=== PATIENT | female | born 1940 | race Caucasian/White ===

== ENCOUNTER → 2016-06-30 | Outpatient (CLI) | payer MEDICARE, OTHER | LOC: GMAM 17:12 | PROVIDERS: ATTEND Family Medicine | DX: E55.9 Vitamin D deficiency, unspecified (principal) ==

== ENCOUNTER → 2016-07-07 | Outpatient (CLI) | payer MEDICARE, OTHER | END | disposition home or self-care (01) | LOC: GMA 17:39 | PROVIDERS: ATTEND Nurse Practitioner Acute Care | DX: N39.0 Urinary tract infection, site not specified (principal) ==

== ENCOUNTER → 2016-12-14 | Outpatient (CLI) | payer MEDICARE, OTHER | END | disposition home or self-care (01) | LOC: GMAM 10:42 | PROVIDERS: ATTEND Family Medicine | DX: E55.9 Vitamin D deficiency, unspecified (principal) ==

== ENCOUNTER → 2016-12-22 | Outpatient (CLI) | payer MEDICARE, OTHER | LOC: GMAM 17:42 | PROVIDERS: ATTEND Family Medicine | DX: N39.0 Urinary tract infection, site not specified (principal) ==

== ENCOUNTER → 2017-02-20 | Outpatient (CLI) | payer MEDICARE, OTHER ==
--- NOTE | 2017-02-21 07:49 | US ---
EXAM DESCRIPTION: Thyroid CLINICAL HISTORY: 76 years Female, THYROID NODULE COMPARISON: None. TECHNIQUE: Real-time sonographic images of the thyroid are obtained. FINDINGS: Right lobe thyroid measures 3.5 x 1.2 x 1.6 cm. There are 2 well-circumscribed hypoechoic solid nodules measuring less than 6 mm greatest diameter in the mid to upper pole of the right lobe thyroid with no suspicious calcifications or increased vascularity. The isthmus measures 2 mm in thickness. Left lobe thyroid measures 3.5 x 1.5 x 1.5 cm. There is a heterogeneous hypoechoic nodule with increased through transmission in the midpole of the left lobe measuring 2.6 x 1.4 x 1.4 cm. No abnormal calcifications or increased vascularity is seen. IMPRESSION: There is a 2.6 cm nodule of the mid pole left lobe thyroid. Recommend fine-needle aspiration of this nodule based on size of the lesion. Electronically signed by: Raul Miles MD 02/21/2017 7:48 AM CDT
--- NOTE | 2017-02-21 13:03 | US ---
EXAM DESCRIPTION: Extremity,Lower Cortes Arteries CLINICAL HISTORY: 76 years Female, Peripheral vascular disease, unspecified COMPARISON: None. TECHNIQUE: 2-D grayscale and color arterial duplex Doppler evaluation of the bilateral lower extremities are obtained FINDINGS: Mild scattered calcified plaque throughout the arterial vasculature are seen. There is triphasic to biphasic waveform flow from proximal to distal in the right lower extremity with no elevated velocities. There is triphasic to biphasic waveform flow from the common femoral artery to the popliteal artery on the left with biphasic flow in the peroneal artery. Monophasic flow is seen in the left posterior tibialis and dorsalis pedis arteries with decreased velocity in the dorsalis pedis. IMPRESSION: Mild atherosclerotic disease is seen. No ultrasound evidence of large vessel high-grade stenosis or occlusion. There is likely moderate scattered disease of the left posterior tibialis and anterior tibialis and dorsalis pedis arteries. Electronically signed by: Raul Miles MD 02/21/2017 1:02 PM CDT
== END ==
LOC: US 10:52
PROVIDERS: ATTEND Family Medicine
DX: E04.1 Nontoxic single thyroid nodule (principal); I70.203 Unspecified atherosclerosis of native arteries of extremities, bilateral legs; I73.9 Peripheral vascular disease, unspecified

== ENCOUNTER → 2017-08-07 | Outpatient (CLI) | payer MEDICARE, OTHER ==
--- NOTE | 2017-08-07 15:04 | MRI ---
MRI OF LUMBAR SPINE WITHOUT INTRAVENOUS CONTRAST HISTORY:LOW BACK PAIN COMPARISON: MRI of lumbar spine from September 20, 2013 TECHNIQUE: Routine MRI protocol for lumbar spine without intravenous contrast administration. FINDINGS: Interval appearance of laminectomy defects in L4 and L5. No concerning fluid collection along the laminectomy defects. Stably accentuated lumbar lordosis secondary to anterolisthesis of L4 on L5 with posterior endplate offset of 5 mm.. Vertebral heights are maintained without interval compression injury. No focal spondylolysis nor new spondylolisthesis. Marrow signal characteristics remain heterogeneous without focal injury, inflammation or marrow infiltration. Subtly increased edema along several endplates are more consistent with underlying degenerative changes Conus terminates at inferior T12 level. Cauda equina nerve roots are unremarkable in appearance without abnormal tethering. No paraspinal soft tissue abnormality is identified in the lumbar region. At T12-L1, disc height is maintained. Central canal and neuroforamen bilaterally are patent. At L1-2, disc height is reduced by approximately 50%. Annular disc bulge continues to broadly but minimally efface the ventral thecal margin. Stable minimal central canal stenosis. Extension of extruded discs toward lateral recesses contribute to moderate bilateral neuroforaminal stenosis slightly increased since prior study. At L2-3, disc height is now decreased by over 80%, slightly increased since prior study. Annular disc bulge continues to be associated with posterior disc extrusion which probably but mildly deform the ventral thecal margin. This combined with facet arthropathy provide stable mild central canal stenosis. Extension of extruded disc toward both lateral recesses provides minimal right and moderate left neuroforaminal stenosis, stable since prior study At L3-4, disc height remains stably reduced by 60%. Annular disc bulges associated with posterior disc extrusion which probably and stably flatten the ventral thecal margin. Facet arthropathy at this level continues to contribute to mild to moderate central canal stenosis. Extension of extruded discs toward the lateral recesses provides moderate bilateral neuroforaminal stenosis, stable since prior study. At L4-5, disc height remains reduced by approximately 90%. Posterior disc extrusion and endplate offset flatten the ventral thecal margin. Central canal patency however dramatically improved due to interval laminectomy. Combination of extruded disc extending toward the lateral recesses and facet arthropathy provides severe right and moderate left neuroforaminal stenosis, unchanged since prior study At L5-S1, disc height is reduced by approximately 80%. Posterior disc extrusion broadly flattening the ventral thecal margin, while central canal patency is minimally improved despite decompressive laminectomy. Lateral extension of extruded disc contribute to severe right and moderate left neural foraminal stenosis (one combine with facet arthropathy), stable since prior study. IMPRESSION: 1. Interval decompressive laminectomy and L4 and L5 levels since prior study, with significantly improved central canal patency at L4-5 level, and only minimally improved patency of central canal at L5-S1 level. 2. Grossly stable extent of multilevel degenerative changes and posterior disc extrusions throughout lumbar spine 3. No acute bony injury identified in lumbar region 4. Varying degrees of neural foraminal stenosis in multiple levels bilaterally, generally stable in extent since prior study. Electronically signed by: Fredi Newsome MD 08/07/2017 3:03 PM [facility]
== END ==
LOC: MRI 14:42
PROVIDERS: ATTEND Family Medicine
DX: M54.5 Low back pain (principal); E55.9 Vitamin D deficiency, unspecified

== ENCOUNTER → 2018-08-30 | Outpatient (CLI) | payer MEDICARE, OTHER | LOC: GMAM 12:28 | PROVIDERS: ATTEND Family Medicine | DX: E55.9 Vitamin D deficiency, unspecified (principal) ==

== ENCOUNTER → 2018-09-06 | Outpatient (CLI) | payer MEDICARE, OTHER ==
--- NOTE | 2018-09-07 09:20 | MRI ---
EXAM DESCRIPTION: Brain w/oContrast CLINICAL HISTORY: MEMORY LOSS COMPARISON: Previous CT head June 28, 2012 TECHNIQUE: Non contrast MRI of the brain is performed according to our usual protocol including multiplanar multi sequence technique. FINDINGS: Sagittal T1 images show intact corpus callosum. Normal pituitary gland with normal T1 appearance of the сергей and medulla and upper cervical cord. Normal signal intensity within the clivus and calvarium. Axial T2 fat sat images reveal preservation of intracranial vascular flow voids. Normal yoon matter T2 signal intensity. Prominent ventricles with prominent temporal horns related to generalized cerebral volume loss. The globes appear intact and symmetrical. No abnormal fluid signal in the paranasal sinuses, tympanic cavities or mastoid air cells. Axial flair images show scattered punctate foci, few in number, within the subcortical and central white matter of both cerebral hemispheres consistent with mild chronic microvascular ischemic changes. Diffusion weighted images are negative for focal intense increased signal intensity in the brain parenchyma to suggest restricted diffusion. ADC mapping is negative. Axial T1 images show normal yoon-white matter differentiation. No high signal intensity hemorrhagic lesion of the brain parenchyma. No subdural hematoma. Axial susceptibility weighted images are negative for focal signal loss to suggest abnormal brain parenchymal calcification or hemosiderin deposition. IMPRESSION: Senescent brain with chronic microvascular ischemic changes. Electronically signed by: Jeremias Vargas MD 09/07/2018 9:16 AM CDT
== END ==
LOC: MRI 10:55
PROVIDERS: ATTEND Family Medicine
DX: R41.89 Other symptoms and signs involving cognitive functions and awareness (principal)

== ENCOUNTER → 2018-12-05 | Outpatient (CLI) | payer MEDICARE, OTHER | LOC: GMAM 10:20 | PROVIDERS: ATTEND Family Medicine | DX: E55.9 Vitamin D deficiency, unspecified (principal); I10 Essential (primary) hypertension; E11.9 Type 2 diabetes mellitus without complications ==

== ENCOUNTER → 2018-12-13 | Outpatient (CLI) | payer MEDICARE, OTHER ==
--- NOTE | 2018-12-14 14:49 | MAM ---
EXAM DESCRIPTION: 3D Screening BILATERAL : Digital Mammography. CLINICAL HISTORY: 78 years Female Screening . No complaints or personal history of breast cancer. Mother with breast cancer at age 70. Childbirth. Postmenopausal. HRT unknown time. Lifetime risk of developing breast cancer (Tyrer-Cuzick model)(%): 6.2. COMPARISON: Bilateral screening 2-D digital mammography 12/21/2015. TECHNIQUE: Bilateral CC and MLO projection full-field images, digital tomosynthesis mammographic technique. Bilateral digital 2-D full-field MLO images. CAD not available for tomosynthesis or 2-D images. FINDINGS: The breast parenchymal density pattern is: Heterogeneously dense breast tissue, which may obscure small masses. No skin thickening or nipple retraction. Bilateral vascular calcifications. Bilateral solitary and grouped microcalcifications. The grouped calcifications have a benign appearance. Bilateral numbers of calcifications have increased since the prior study and also more vascular calcifications. No new focal, stellate mass or density, focal asymmetry , and no suspicious microcalcifications bilaterally. IMPRESSION: Benign exam. BIRAD CATEGORY: 2 BENIGN FINDINGS. RECOMMENDATIONS: FOLLOW UP: Routine digital bilateral mammographic screening, one year interval from December 2018. Written communication explaining the IMPRESSION and follow-up, will be mailed to the patient and referring health care provider. According to the [employer], yearly mammograms are recommended starting at age 40 and continuing as long as a woman is in good health. Any breast change noted on a breast self-exam should be reported promptly to the patient's healthcare provider. Breast MRI is recommended for women with an approximately 20-25% or greater lifetime risk of breast cancer, including women with a strong family history of breast or ovarian cancer and women who have been treated for Hodgkin's disease. A negative mammographic report should not delay tissue diagnosis in patients with significant clinical history or physical findings. Extremely dense breast tissue limits the sensitivity of digital mammography. Electronically signed by: Young Ortiz MD 12/14/2018 2:46 PM CDT
== END ==
LOC: MAMMO 14:30
PROVIDERS: ATTEND Family Medicine
DX: Z12.31 Encounter for screening mammogram for malignant neoplasm of breast (principal)

== ENCOUNTER → 2019-03-14 | Outpatient (CLI) | payer MEDICARE, OTHER | LOC: GMAM 16:27 | PROVIDERS: ATTEND Family Medicine | DX: D64.9 Anemia, unspecified (principal) ==

== ENCOUNTER → 2019-07-11 | Outpatient (CLI) | payer MEDICARE, OTHER | LOC: GMAM 17:15 | PROVIDERS: ATTEND Family Medicine | DX: D64.9 Anemia, unspecified (principal); I10 Essential (primary) hypertension; E11.9 Type 2 diabetes mellitus without complications ==

== ENCOUNTER → 2020-03-16 | Outpatient (CLI) | payer MEDICARE, OTHER | LOC: GMAM 14:39 | PROVIDERS: ATTEND Family Medicine | DX: D64.9 Anemia, unspecified (principal); E55.9 Vitamin D deficiency, unspecified; I10 Essential (primary) hypertension; E11.9 Type 2 diabetes mellitus without complications; Z79.899 Other long term (current) drug therapy ==

== ENCOUNTER → 2020-03-30 | Outpatient (CLI) | payer MEDICARE, OTHER ==
--- NOTE | 2020-03-31 14:43 | MRI ---
EXAM DESCRIPTION: Brain w/o Contrast: MRI. CLINICAL HISTORY: UNSPEC. SYMPTOMS AND SIGNS INVOLVING COGNITIVE FUNCTIONS COMPARISON: MRI scan of the right without contrast September 2018. TECHNIQUE: Multiplanar, high-field MRI unit, multiple diffusion sequences, multiple conventional sequences without contrast. FINDINGS: Small foci of hyperintense FLAIR and T2-weighted signal in the periventricular white matter abutting the occipital lobes and also the bilateral superior tijerina radiata, extending into the centrum semiovale. Bilateral small focal similar hyperintense signal in the subcortical white matter of the frontal lobes. Smaller foci in the subcortical white matter of the parietal lobes.. No hemorrhage, no cerebral edema, no midline shift.. No diffusion restriction. Stable since the prior study. Normal signal in the bilateral basal ganglia. Normal signal in the brainstem and cerebellar hemispheres.. Concordance of the diffusion and non-diffusion sequences, elsewhere in the brain, with no diffusion restriction. Cortical sulci, ventricles, and other CSF spaces, and the subdural spaces are minimally prominent for the patient's age, especially parasagittal frontal lobe and the ventricular system. No effacement or displacement. No midline shift. No extra-axial hemorrhage. Hyperintense T1 and T2 nodules on the falx at the level of the frontal lobes stable since the prior study. Normal flow signal void in the major vessels of the [place], and the venous sinuses. IACs are symmetric bilaterally. No abnormal signal in the bilateral mastoid air cells. No mass effect in the bilateral cerebellopontine angles. Pituitary gland occupies only the base of the sella. Base of the cerebellar tonsils is above the foramen magnum. Minimal mucoperiosteal thickening in the paranasal sinuses without air-fluid levels. The bony calvarium is intact. IMPRESSION: 1. Abnormal signal in the periventricular white matter and subcortical white matter as described above which is confluent and focal. Bilaterally symmetric. Consistent with cerebral microvascular disease and/or aging. Unlikely to represent vasculitis, demyelination, or migraine headaches. Stable since the prior study. 2. Cortical and central atrophy has slightly prominent for patient's age but no significant change since the prior study. No diffusion restriction, and no evidence of significant ischemia, acute/subacute infarction. 3. Minimal chronic paranasal sinusitis is stable. Electronically signed by: Young Ortiz MD 03/31/2020 2:41 PM CDT
== END ==
LOC: MRI 13:49
PROVIDERS: ATTEND Family Medicine
DX: R41.9 Unspecified symptoms and signs involving cognitive functions and awareness (principal); R90.82 White matter disease, unspecified; G31.9 Degenerative disease of nervous system, unspecified; J32.9 Chronic sinusitis, unspecified

== ENCOUNTER → 2020-07-29 | Outpatient (CLI) | payer MEDICARE, OTHER | LOC: GMAM 17:05 | PROVIDERS: ATTEND Family Medicine | DX: E55.9 Vitamin D deficiency, unspecified (principal); I10 Essential (primary) hypertension; E78.2 Mixed hyperlipidemia; E11.9 Type 2 diabetes mellitus without complications ==